=== PATIENT | male | born 1980 | race American Indian/Alaskan Native ===

== ENCOUNTER 2018-10-23 13:33 | Emergency (ER) | payer OTHER ==
[2018-10-23 13:56] VITALS: BP 126/74
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
[2018-10-23] MEDS ORDERED: FLEXERIL PO ONE (14:46)
[2018-10-23] MEDS ORDERED: TORADOL IM ONE (14:46)
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
== END 2018-10-23 15:46 | disposition home or self-care (01) ==
LOC: ED 13:33
DX: M79.18 Myalgia, other site (principal); V89.2XXA Person injured in unspecified motor-vehicle accident, traffic, initial encounter; Y93.89 Activity, other specified; Y92.89 Other specified places as the place of occurrence of the external cause; Y99.8 Other external cause status
CPT/HCPCS: 72070; 72100; 96372; 99283; J1885